=== PATIENT | female | born 1960 | race Caucasian/White ===

== ENCOUNTER 2020-02-08 07:21 | Outpatient (CLI) | payer OTHER, SELFPAY ==
--- NOTE | ~2020-02-08 | MM_ITS ---
EXAMINATION: MM screening [facility] BI w august HISTORY: Screening TECHNIQUE: Craniocaudal and mediolateral oblique 3-D tomosynthesis images were obtained and synthetic 2-D images were generated. CAD analysis was submitted and interpreted. COMPARISON: Comparison to multiple prior studies sequentially, with oldest reviewed study dated 04/30. BREAST PARENCHYMAL COMPOSITION: There are scattered areas of fibroglandular density. FINDINGS: There is focal asymmetry in the subareolar location of the left breast on CC view. The righ t breast is stable without evidence for malignancy. IMPRESSION: 1. Focal left breast asymmetry on CC view. 2. Additional mammographic views and possible breast ultrasound are recommended. BI-RADS Category 0: Incomplete: Needs additional imaging evaluation. Reviewed, dictated and finalized at location A. IMPRESSION: 1. Focal left breast asymmetry on CC view. 2. Additional mammographic views and possible breast ultrasound are recommended . BI-RADS Category 0: Incomplete: Needs additional imaging evaluation.
== END 2020-02-08 07:22 | disposition home or self-care (01) ==
PROVIDERS: PCP Family Medicine; Visit Provider Obstetrics & Gynecology
DX: Z12.31 Encounter for screening mammogram for malignant neoplasm of breast (principal); R92.8 Other abnormal and inconclusive findings on diagnostic imaging of breast
CPT/HCPCS: 77063; 77067

== ENCOUNTER → 2020-02-25 14:10 | Outpatient (CLI) | payer OTHER, SELFPAY ==
--- NOTE | ~2020-02-25 | MMUS_ITS ---
EXAMINATION: MM diagnostic mammo unilat LT, US breast LT limited HISTORY: Left breast asymmetry on screening mammogram TECHNIQUE: Additional 3-D tomosynthesis images of the left breast were performed and synthetic 2-D im ages were generated. CAD analysis was submitted and interpreted. High resolution limited left breast ultrasound was performed. COMPARISON: 02/08/2020, 12/18/2018, 12/15/2017, 06/08/2014, 05/29/2013 FINDINGS: MAMMOGRAPHIC FINDINGS: An asymmetry persists in the middle third of the slightly outer breast 3.8 cm from the nipple on the craniocaudal view which has an appearance similar to prior mammograms with spot compression. No assoc iated architectural distortion or calcification are identified. ULTRASOUND: There is no evidence of focal abnormal solid or cystic lesion in the vicinity of the mammographic fin ding in question. IMPRESSION: 1. No mammographic or sonographic evidence of malignancy. 2. Recommend routine screening mammography in one year. BI-RADS Category 2: Benign finding(s). Reviewed, dictated and finalized at location A. IMPRESSION: 1. No mammographic or sonographic evidence of malignancy. 2. Recommend routine screening mammography in one year. BI-RADS Category 2: Benign finding(s).
== END ==
PROVIDERS: Visit Provider Obstetrics & Gynecology
DX: R92.8 Other abnormal and inconclusive findings on diagnostic imaging of breast (principal)
CPT/HCPCS: 76642; 77065

== ENCOUNTER 2020-09-06 08:37 | Emergency (ER) | payer OTHER, SELFPAY ==
--- NOTE | 2020-09-06 08:41 | ED.GENADULT ---
HPI - General Adult General Chief complaint: Urogenital-Female Stated complaint: UTI SYMPTOMS Time Seen by Provider: 09/06/20 08:41 Source: patient Mode of arrival: ambulatory Limitations: no limitations History of Present Illness HPI narrative: 60-year-old female patient presents to the [facility] with complaints of urinary symptoms that started this morning. Patient states she has had a little bit of lower abdominal pressure, urinary frequency and urgency and a little bit of burning pain when she urinates. Denies any low back pain. Denies any fevers, body aches or chills. Patient denies taking anything for her symptoms. Related Data Allergies Allergy/AdvReac Type Severity Reaction Status Date / Time No Known Allergies Allergy Unknown Verified 09/06/20 08:43 Review of Systems Review of Systems: Narrative: CONSTITUTIONAL: Denies fever, chills, or sweats. EYES: Denies visual changes, redness, or discharge. ENT: Denies rhinorrhea, congestion, sore throat, or otalgia. CARDIOVASCULAR: Denies chest pain, palpitations, or edema. RESPIRATORY: Denies cough or dyspnea. GASTROINTESTINAL: Denies abdominal pain, nausea, vomiting, or diarrhea. GENITOURINARY: Positive dysuria, denies hematuria. SKIN: Denies rash or itching. MUSCULOSKELETAL: Denies back pain, joint pain, or myalgia. NEUROLOGIC: Denies headache, numbness, or weakness. PSYCHIATRIC: Denies anxiety or depression. [facility] Past Medical History Medical History (Updated 09/06/20 @ 09:06 by MARSHA Everett) Benign neoplasm of colon Essential hypertension History of postmenopausal HRT Metabolic syndrome Mixed hyperlipidemia Type 2 diabetes mellitus with hyperglycemia Vitamin D deficiency Surgical History Surgical History (Updated 09/06/20 @ 08:42 by MARSHA Everett) H/O tubal ligation H/O: hysterectomy Hx of cholecystectomy Family History Family History Mother Diabetes mellitus Family history of type 1 diabetes mellitus, Onset Age: 48 Grandparent Family history of cardiovascular disease Social History Social History Smoking status: Never smoker Second hand tobacco smoke exposure: No Alcohol intake: current Substance use: never Substance use type: does not use Gender identity (if verbalized by the patient): Female Comments At the time of my signature I agree with nursing past medical history, surgical, social, and family history. There is no relevant family history pertinent to the presenting complaint. Exam Narrative: Exam Narrative: GENERAL: Well-appearing, well-nourished, and in no acute distress. HEAD: Normocephalic, atraumatic. EYES: PERRLA and EOMI. ENT: Nares clear, no rhinorrhea or epistaxis. Mucous membranes moist. NECK: Supple. No lymphadenopathy CHEST: Clear to auscultation. No respiratory distress. HEART: Regular rate and rhythm. No murmur heard. Normal peripheral pulses. ABDOMEN: Soft, nontender, nondistended, normal active bowel sounds. No CVA tenderness on percussion EXTREMITIES: Normal range of motion. No edema. SKIN: Warm, dry, no rash. NEURO: No focal deficits. Alert and oriented x3. Course Vital Signs Vital signs: Vital Signs Temperature 36.2 C L 09/06/20 08:50 Pulse Rate 92 09/06/20 08:50 Respiratory Rate 12 09/06/20 08:50 Blood Pressure 128/69 09/06/20 08:50 Pulse Oximetry 100 09/06/20 08:50 Temperature 36.2 C L 09/06/20 08:50 Pulse Rate 92 09/06/20 08:50 Respiratory Rate 12 09/06/20 08:50 Blood Pressure 128/69 09/06/20 08:50 Pulse Oximetry 100 09/06/20 08:50 Vital signs reviewed Medical Decision Making Differential Diagnosis Differential Diagnosis: Differential diagnosis: Uncomplicated lower UTI, uncomplicated UTI, pyelonephritis Discussed with patient that based on her symptoms as well as her urine dip it does appear that she most likely does
[2020-09-06 08:50] VITALS: BP 128/69; PULSE 92; RESP 12; TEMP 36.2; O2SAT 100
== END 2020-09-06 09:12 | disposition home or self-care (01) ==
PROVIDERS: Emergency Provider Nurse Practitioner Family; PCP Family Medicine
DX: N30.01 Acute cystitis with hematuria (principal); I10 Essential (primary) hypertension; E88.81 Metabolic syndrome and other insulin resistance; E78.2 Mixed hyperlipidemia
CPT/HCPCS: 81003; 87077; 87086; 87088; 87186; 99213; G0463

== ENCOUNTER 2021-02-01 10:00 | Emergency (ER) | payer OTHER, SELFPAY ==
[2021-02-01 10:12] VITALS: BP 148/71; PULSE 82; RESP 16; TEMP 36.1; O2SAT 99
--- NOTE | 2021-02-01 10:26 | ED.FEMALEGU ---
HPI - Female Genitourinary General Chief complaint: Urogenital-Female Stated complaint: POS UTI Time Seen by Provider: 02/01/21 10:17 Source: patient and RN notes reviewed Mode of arrival: ambulatory Limitations: no limitations History of Present Illness HPI Narrative: Patient presents today complaining of urinary frequency, lower abdominal pressure, voiding small amounts. Symptoms began this morning. She took a dose of Azo approximately 2-1/2 hours prior to exam, which did help with her some. Denies hematuria. MD elicited complaint: UTI Related Data Allergies Allergy/AdvReac Type Severity Reaction Status Date / Time No Known Allergies Allergy Unknown Verified 09/12/20 14:48 Review of Systems Review of Systems: CONSTITUTIONAL: Denies body aches, fever, chills, or sweats. EYES: Denies visual changes, redness, or discharge. ENT: Denies rhinorrhea, congestion, sore throat, or otalgia. CARDIOVASCULAR: Denies chest pain, palpitations, or edema. RESPIRATORY: Denies cough or dyspnea. GASTROINTESTINAL: Denies abdominal pain, nausea, vomiting, or diarrhea. GENITOURINARY: + Frequency, suprapubic pressure SKIN: Denies rash, itching, or wounds. MUSCULOSKELETAL: Denies back pain, joint pain, or myalgia. NEUROLOGIC: Denies headache, numbness, tingling, or weakness. PSYCH: Denies depression or anxiety. [facility] Past Medical History Medical History Benign neoplasm of colon Essential hypertension History of postmenopausal HRT Metabolic syndrome Mixed hyperlipidemia Type 2 diabetes mellitus with hyperglycemia Vitamin D deficiency Surgical History Surgical History H/O tubal ligation H/O: hysterectomy Hx of cholecystectomy Family History Family History Mother Diabetes mellitus Family history of type 1 diabetes mellitus, Onset Age: 48 Grandparent Family history of cardiovascular disease Social History Social History Smoking status: Never smoker Second hand tobacco smoke exposure: No Alcohol intake: current Substance use: never Substance use type: does not use Gender identity (if verbalized by the patient): Female Comments At time of signature, I have reviewed and agree with nursing past medical, surgical, social and family history unless otherwise noted. Please see nursing chart for further information. There is no relevant family history pertinent to the presenting complaint Exam Narrative: GENERAL: Well-appearing, well-nourished, and in no acute distress. HEAD: Normocephalic, atraumatic. EYES: EOMI. No redness or drainage. Conjunctivae normal. ENT: Mucous membranes pink and moist. NECK: Normal AROM. CHEST: No respiratory distress. Clear to auscultation. HEART: Regular rate and rhythm. No murmur appreciated. Normal peripheral pulses. ABDOMEN: Soft, nontender, nondistended, normal active bowel sounds.-CVAT MUSCULOSKELETAL: No bony tenderness. EXTREMITIES: Normal range of motion. No edema. SKIN: Warm, dry, no rash. Capillary refill normal. Normal skin turgor. NEURO: No focal deficits. Alert and oriented x3. Gait steady. PSYCH: Normal affect. No signs of depression or anxiety. Course Vital Signs Vital signs: Vital Signs Temperature 96.9 F L 02/01/21 10:12 Pulse Rate 82 02/01/21 10:12 Respiratory Rate 16 02/01/21 10:12 Blood Pressure 148/71 H 02/01/21 10:12 Pulse Oximetry 99 02/01/21 10:12 Temperature 96.9 F L 02/01/21 10:12 Pulse Rate 82 02/01/21 10:12 Respiratory Rate 16 02/01/21 10:12 Blood Pressure 148/71 H 02/01/21 10:12 Pulse Oximetry 99 02/01/21 10:12 Reviewed. Pt has been instructed to follow up with her PCP regarding her elevated blood pressure today. MDM - Female Genitourinary Differential Diagno
== END 2021-02-01 10:36 | disposition home or self-care (01) ==
PROVIDERS: Emergency Provider Nurse Practitioner; PCP Family Medicine
DX: N30.00 Acute cystitis without hematuria (principal); I10 Essential (primary) hypertension; E78.5 Hyperlipidemia, unspecified; E11.9 Type 2 diabetes mellitus without complications; E88.81 Metabolic syndrome and other insulin resistance
CPT/HCPCS: 81003; 87086; 87088; 99213; G0463

== ENCOUNTER 2021-02-12 07:20 | Outpatient (CLI) | payer OTHER, SELFPAY ==
--- NOTE | ~2021-02-12 | MM_ITS ---
EXAMINATION: MM screening [facility] BI w august HISTORY: Screening TECHNIQUE: Craniocaudal and mediolateral oblique 3-D tomosynthesis images were obtained and synthetic 2-D images were generated. CAD analysis was submitted and interpreted. COMPARISON: Comparison to multiple prior studies sequentially, with oldest reviewed study dated 06/08. BREAST PARENCHYMAL COMPOSITION: There are scattered areas of fibroglandular density. FINDINGS: There is no evidence of suspicious mass, calcification, or architectural distortion to sugg est malignancy in either breast. There has been no suspicious interval change. IMPRESSION: 1. No mammographic evidence of malignancy. 2. Recommend routine screening mammography in one year. BI-RADS Category 1: Negative Reviewed, dictated and finalized at location A.
== END 2021-02-12 07:21 | disposition home or self-care (01) ==
LOC: ANHIMG 07:23
PROVIDERS: PCP Family Medicine; Visit Provider Obstetrics & Gynecology
DX: Z12.31 Encounter for screening mammogram for malignant neoplasm of breast (principal)
CPT/HCPCS: 77063; 77067

== ENCOUNTER 2022-02-22 00:41 | Day surgery (SDC) | payer OTHER, SELFPAY ==
[2022-02-03 14:33] VITALS: BMI 27.4
--- NOTE | 2022-02-19 15:24 | PM.HPGS ---
History of Present Illness History of Present Illness Consent: Risks, benefits, and alternatives have been discussed and questions answered. Patient agrees to proceed with procedure. Chief complaint: hx of colon polyps, neoplasm screening Narrative: Katia Pak is a 61 year old female here for colon cancer screening. She had a polyp removed about 4 years ago. Review of Systems Review of Systems: All systems reviewed & are unremarkable except as noted in HPI and below PMFSH Past Medical History Medical History Benign neoplasm of colon Controlled diabetes mellitus Essential hypertension History of postmenopausal HRT Metabolic syndrome Mixed hyperlipidemia Type 2 diabetes mellitus with hyperglycemia Vitamin D deficiency Surgical History Surgical History H/O tubal ligation H/O: hysterectomy Hx of cholecystectomy Family History Family History Mother Diabetes mellitus Family history of type 1 diabetes mellitus, Onset Age: 48 Grandparent Family history of cardiovascular disease Social History Social History Smoking status: Never smoker Second hand tobacco smoke exposure: No Alcohol intake: current Substance use: never Substance use type: does not use Living arrangements: other Additional living arrangements comments: with sp Gender identity (if verbalized by the patient): Female Meds Home Medications and Allergies Home Medications Medication Instructions Recorded Confirmed Type blood sugar diagnostic (OneTouch #100 ea 12/11/20 02/22/22 Rx Ultra Test strips) lisinopril 5 mg tablet 5 mg PO DAILY #90 tabs 06/15/21 02/22/22 Rx simvastatin 20 mg tablet 20 mg PO DAILY #90 tabs 06/15/21 02/22/22 Rx semaglutide 0.25 mg or 0.5 mg (2 0.5 mg (0.4 mL) subcut WEEKLY #1.5 01/04/22 02/22/22 Rx mg/1.5 mL) subcutaneous pen mL injector (Ozempic) Allergies Allergy/AdvReac Type Severity Reaction Status Date / Time No Known Allergies Allergy Unknown Verified 02/22/22 06:23 Exam Resp: Auscultation: clear to auscultation bilaterally Cardio: Rate: regular rate Rhythm: regular rhythm GI: GI Palp: Yes Soft to palpation and No Tenderness to palpation present (GI) Assessment and Plan Assessment and plan (1) Colon cancer screening: Code(s): Z12.11 - Encounter for screening for malignant neoplasm of colon Status: Acute
[2022-02-22 06:26] VITALS: BP 129/62; PULSE 78; RESP 16; TEMP 36.5; O2SAT 99
[2022-02-22] MEDS: LACTATED RINGERS 1,000 ML 150 ML IV CONT (06:38)
[2022-02-22 06:46] LABS: Glucose Point of Care 96 mg/dl (65-105)
--- NOTE | 2022-02-22 06:52 | WPDANESEPPF ---
Anes - Initial Pre Proc Eval Procedure: Operation Date: 02/22/22 07:30 Proposed Procedures p Screening Colonoscopy - Jose Garland MD Date/Time: 02/22/22 06:52 Surgeon: Jose Garland MD Pre Op Diagnosis: hx of colon polyps, neoplasm screening Patient Data Age: 61 Gender: F Height: 1.73 m Weight: 80.4 kg Last Vital Signs Temp 36.5 C 02/22/22 06:26 Pulse 78 02/22/22 06:26 Resp 16 02/22/22 06:26 BP 129/62 02/22/22 06:26 Pulse Ox 99 02/22/22 06:26 O2 Del Method Room Air 02/22/22 06:26 Allergies Allergy/AdvReac Type Severity Reaction Status Date / Time No Known Allergies Allergy Unknown Verified 02/22/22 06:23 Home Medications Medication Instructions Recorded Confirmed Type blood sugar diagnostic (OneTouch #100 ea 12/11/20 02/22/22 Rx Ultra Test strips) lisinopril 5 mg tablet 5 mg PO DAILY #90 tabs 06/15/21 02/22/22 Rx simvastatin 20 mg tablet 20 mg PO DAILY #90 tabs 06/15/21 02/22/22 Rx semaglutide 0.25 mg or 0.5 mg (2 0.5 mg (0.4 mL) subcut WEEKLY #1.5 01/04/22 02/22/22 Rx mg/1.5 mL) subcutaneous pen mL injector (Ozempic) Laboratory Tests 02/22/22 06:44 POC Capillary Glucose 96 mg/dl mg/dl (65-105) Patient hx anesthesia problems: none Family hx anesthesia problems: none Results Review: All pre-operative results and documents have been reviewed as part of the pre-operative evaluation. [facility] Past Medical History Medical History Benign neoplasm of colon Controlled diabetes mellitus Essential hypertension History of postmenopausal HRT Metabolic syndrome Mixed hyperlipidemia Type 2 diabetes mellitus with hyperglycemia Vitamin D deficiency Surgical History Surgical History H/O tubal ligation H/O: hysterectomy Hx of cholecystectomy Family History Family History Mother Diabetes mellitus Family history of type 1 diabetes mellitus, Onset Age: 48 Grandparent Family history of cardiovascular disease Social History Social History Smoking status: Never smoker Second hand tobacco smoke exposure: No Alcohol intake: current Substance use: never Substance use type: does not use Living arrangements: other Additional living arrangements comments: with sp Gender identity (if verbalized by the patient): Female Anes - Eval Final PreProcedure Day of Procedure 02/22/22 06:52 Patient weight: overweight Heart: regular rate and rhythm Lungs: clear to auscultation Airway: Mallampati scale class II Neurological: alert and oriented Last oral intake: >/= 8 hours ASA classification: II Emergent: no Anesthetic plan: proceed Anesthesia type and monitoring: general GIVS and standard monitoring Results Review: All pre-operative results and documents have been reviewed as part of the pre-operative evaluation. Informed Consent: The patient's anesthetic plan and its attendant risks and benefits were discussed with the patient/family/POA. Questions were solicited and answers provided to the satisfaction of the patient/family/POA.
[2022-02-22 07:47] VITALS: BP 89/44; PULSE 72; RESP 25; O2SAT 97
[2022-02-22 07:57] VITALS: BP 110/63; PULSE 74; RESP 22; O2SAT 99
[2022-02-22 08:07] VITALS: BP 119/72; PULSE 72; RESP 20; O2SAT 100
== END 2022-02-22 08:18 | disposition home or self-care (01) ==
PROVIDERS: PCP Family Medicine; Visit Provider Internal Medicine Gastroenterology
PROC: 0DJD8ZZ Inspection of Lower Intestinal Tract, Via Natural or Artificial Opening Endoscopic (ICD-10-PCS; CPT 45378; principal; 2022-02-22 07:30)
DX: Z12.11 Encounter for screening for malignant neoplasm of colon (principal); Z86.010 Personal history of colon polyps; E55.9 Vitamin D deficiency, unspecified; E11.9 Type 2 diabetes mellitus without complications; E78.2 Mixed hyperlipidemia; E11.65 Type 2 diabetes mellitus with hyperglycemia; Z90.49 Acquired absence of other specified parts of digestive tract
CPT/HCPCS: 45378; 82948; J2704; J7120

== ENCOUNTER 2022-02-23 07:25 | Outpatient (CLI) | payer OTHER, SELFPAY ==
--- NOTE | ~2022-02-23 | MM_ITS ---
EXAMINATION: MM screening [facility] BI w august HISTORY: Screening mammogram TECHNIQUE: Craniocaudal and mediolateral oblique 3-D tomosynthesis images were obtained and synthetic 2-D images were generated. CAD analysis was submitted and interpreted. COMPARISON: Serial mammogram and ultrasound examinations dating back to 12/15/2017 BREAST PARENCHYMAL COMPOSITION: There are scattered areas of fibroglandular density. FINDINGS: There is no evidence of suspicious mass, calcification, or architectural distortion to sugg est malignancy in either breast. There has been no suspicious interval change. IMPRESSION: 1. No mammographic evidence of malignancy. 2. Recommend routine screening mammography in one year. BI-RADS Category 1: Negative Reviewed, dictated and finalized at location A.
== END 2022-02-23 07:26 | disposition home or self-care (01) ==
LOC: ANHIMG 07:26
PROVIDERS: PCP Family Medicine; Visit Provider Obstetrics & Gynecology
DX: Z12.31 Encounter for screening mammogram for malignant neoplasm of breast (principal)
CPT/HCPCS: 77063; 77067

== ENCOUNTER 2022-04-13 17:50 | Emergency (ER) | payer OTHER, SELFPAY ==
[2022-04-13 17:55] VITALS: BP 126/76; PULSE 91; RESP 16; TEMP 36.7; O2SAT 98
--- NOTE | 2022-04-13 17:58 | ED.FEMALEGU ---
HPI - Female Genitourinary General Chief complaint: Urogenital-Female Stated complaint: PAINFUL URINATION Time Seen by Provider: 04/13/22 17:58 Source: patient and RN notes reviewed History of Present Illness HPI Narrative: Patient is a 61-year-old female who presents to urgent care with complaints of possibly UTI due to urgency, frequency and suprapubic pressure. Patient states that it started a couple days ago and she has been taking Tylenol. Denies any fevers, nausea or vomiting. Patient states that she has had a few UTIs in the last couple years. Denies any history of kidney stones. No other acute complaints. No acute distress noted. Patient aware of the plan of care. Some parts of this dictation were generated by voice recognition software and may contain typographical and/or grammatical inaccuracies. Related Data Allergies Allergy/AdvReac Type Severity Reaction Status Date / Time No Known Allergies Allergy Unknown Verified 02/22/22 06:23 Review of Systems Review of Systems: CONSTITUTIONAL: Denies fever, chills, or sweats. EYES: Denies visual changes, redness, or discharge. ENT: Denies rhinorrhea, congestion, sore throat, or otalgia. CARDIOVASCULAR: Denies chest pain, palpitations, or edema. RESPIRATORY: Denies cough or dyspnea. GASTROINTESTINAL: Denies abdominal pain, nausea, vomiting, or diarrhea. GENITOURINARY: Reports of urgency, frequency and suprapubic pressure SKIN: Denies rash or itching. MUSCULOSKELETAL: Denies back pain, joint pain, or myalgia. NEUROLOGIC: Denies headache, numbness, or weakness. All other systems reviewed are negative, except as documented in HPI. [facility] Past Medical History Medical History Benign neoplasm of colon Controlled diabetes mellitus Essential hypertension History of postmenopausal HRT Metabolic syndrome Mixed hyperlipidemia Type 2 diabetes mellitus with hyperglycemia Vitamin D deficiency Surgical History Surgical History H/O tubal ligation H/O: hysterectomy Hx of cholecystectomy Family History Family History Mother Diabetes mellitus Family history of type 1 diabetes mellitus, Onset Age: 48 Grandparent Family history of cardiovascular disease Social History Social History Smoking status: Never smoker Second hand tobacco smoke exposure: No Alcohol intake: current Substance use: never Substance use type: does not use Additional living arrangements comments: with sp Gender identity (if verbalized by the patient): Female Comments At the time of my signature, I reviewed and agree with the nursing past medical, surgical, social, and family history. There is no relevant family history pertinent to the patient complaint. Exam Narrative: GENERAL: This is a well-nourished, well-developed patient, in no apparent distress. HEAD: normocephalic, atraumatic. EYES: PERRL. Sclera clear/white. Vision is grossly intact. EARS: External ears normal NOSE: External nose normal with no obvious nasal discharge, nares without redness, no rhinorrhea. THROAT: Mucous membranes moist NECK: Neck supple CARDIOVASCULAR: Regular rate and rhythm without murmurs, gallops, or rubs. RESPIRATORY: Clear to auscultation. Breath sounds equal bilaterally. No wheezes, rales, or rhonchi. GASTROINTESTINAL: Abdomen soft, mild suprapubic tenderness, nondistended. Bowel sounds are active. SKIN: warm, intact with no suspicious lesions or rash, good texture and turgor. NEURO: awake, alert, and oriented to person, place and time. There were no obvious focal neurologic abnormalities. EXTREMITIES: No clubbing, cyanosis, or edema. BACK: Negative CVA tenderness Course Course Level of Care: Express Care Visit Vital Signs Vital signs: Vital Signs Temperature 98.1 F
== END 2022-04-13 18:19 | disposition home or self-care (01) ==
PROVIDERS: Emergency Provider Nurse Practitioner Family; PCP Family Medicine
DX: N30.90 Cystitis, unspecified without hematuria (principal); E11.9 Type 2 diabetes mellitus without complications; I10 Essential (primary) hypertension; E78.2 Mixed hyperlipidemia
CPT/HCPCS: 81003; 87086; 99213; G0463

== ENCOUNTER 2023-03-08 07:24 | Outpatient (CLI) | payer OTHER, SELFPAY ==
--- NOTE | ~2023-03-08 | MM_ITS ---
EXAMINATION: MM screening [facility] BI w august HISTORY: Screening mammogram TECHNIQUE: Craniocaudal and mediolateral oblique 3-D tomosynthesis images were obtained and synthetic 2-D images were generated. CAD analysis was submitted and interpreted. COMPARISON: 02/23/2022, 02/12/2021 bilateral screening mammogram examinations 02/25/2020 diagnostic left mammogram and limited left breast ultrasound examination 02/08/2020 bilateral screening mammogram BREAST PARENCHYMAL COMPOSITION: There are scattered areas of fibroglandular density. FINDINGS: Stable mild fibroglandular asymmetry. Occasional scattered benign calcifications. There is no evidence of suspicious mass, calcification, or architectural distortion to suggest malignancy in e ither breast. There has been no suspicious interval change. IMPRESSION: 1. No mammographic evidence of malignancy. 2. Recommend routine screening mammography in one year. BI-RADS Category 2: Benign finding(s)..... Reviewed, dictated and finalized at location A.
== END 2023-03-08 07:25 | disposition home or self-care (01) ==
LOC: ANHIMG 07:25
PROVIDERS: PCP Family Medicine; Visit Provider Obstetrics & Gynecology
DX: Z12.31 Encounter for screening mammogram for malignant neoplasm of breast (principal)
CPT/HCPCS: 77063; 77067

== ENCOUNTER 2023-05-26 08:17 | Emergency (ER) | payer OTHER, SELFPAY ==
--- NOTE | 2023-05-26 08:23 | ED.WOUNDLAC ---
HPI - Wound/Laceration General Chief Complaint: Wound/Laceration Stated Complaint: Cut Finger Time Seen by Provider: 05/26/23 08:23 Source: patient Mode of arrival: ambulatory Limitations: no limitations History of Present Illness HPI narrative: Winter is in a 62-year-old female patient presenting to the clinic today with complaints of a cut on her left index finger yesterday on a knife. She reports she was trying to work with packing tape in accidentally cut herself. She reports that it was still oozing this morning and that prompted her to come into the clinic today. Tetanus shot is [id number] Related Data Allergies Allergy/AdvReac Type Severity Reaction Status Date / Time nitrofurantoin AdvReac Unknown Fatigued, Verified 05/26/23 08:24 [From Macrobid] Chills Review of Systems Review of Systems: Pertinent positives per HPI. Patient denies any fever, chills, rash, headache, visual changes, dizziness, cough, runny nose, sore throat, shortness of breath, chest pain, palpitations, nausea, vomiting, diarrhea, constipation, abdominal pain, or any urinary issues. FORMERLY [facility] Past Medical History Medical History Benign neoplasm of colon Controlled diabetes mellitus Essential hypertension History of postmenopausal HRT Metabolic syndrome Mixed hyperlipidemia Type 2 diabetes mellitus with hyperglycemia Vitamin D deficiency Surgical History Surgical History H/O tubal ligation H/O: hysterectomy Hx of cholecystectomy Family History Family History Mother Diabetes mellitus Family history of type 1 diabetes mellitus, Onset Age: 48 Grandparent Family history of cardiovascular disease Social History Social History Smoking status: Never smoker Second hand tobacco smoke exposure: No Alcohol intake: current Substance use: never Substance use type: does not use Living arrangements: other Additional living arrangements comments: with sp Occupation/Education: occupation Gender identity (if verbalized by the patient): Female Comments At the time of my signature, I reviewed and agree with the nursing past medical, surgical, social, and family history. There is no relevant family history pertinent to the patient complaint. Exam Narrative: General: Well-developed, well nourished, in no apparent distress Head: Normocephalic, atraumatic. Cardio: Regular rate and rhythm, s1 and s2 normal, no murmur appreciated. Resp: Clear to auscultation bilaterally, no rhonchi, rales, wheezing or rubs. Integumentary: Lavina, warm, and dry, intact without lesion, 1 cm laceration to the lateral PIP joint of the left index finger-very mild gaping noted Course Course Emergency Course: Portions of this record may have been created with voice recognition software. Level of Care: Express Care Visit Vital Signs Vital signs: Vital Signs Temperature 37.0 C 05/26/23 08:30 Pulse Rate 83 05/26/23 08:30 Respiratory Rate 16 05/26/23 08:30 Blood Pressure 123/83 05/26/23 08:30 Pulse Oximetry 100 05/26/23 08:30 Temperature 37.0 C 05/26/23 08:30 Pulse Rate 83 05/26/23 08:30 Respiratory Rate 16 05/26/23 08:30 Blood Pressure 123/83 05/26/23 08:30 Pulse Oximetry 100 05/26/23 08:30 Vital signs reviewed Procedures Laceration Laceration 1: Date: 05/26/23 Site: hand (Left index finger) Side (If applicable): left Size (cm): 1 Description: linear Depth: simple, single layer Local Anesthetic: none Pre-repair: wound explored and irrigated ====== Skin Level ====== Skin layer closed with: steri strips ====== Subcutaneous Layer ====== ====== Muscle Layer ====== =====
[2023-05-26 08:30] VITALS: BP 123/83; PULSE 83; RESP 16; TEMP 37; O2SAT 100
== END 2023-05-26 08:57 | disposition home or self-care (01) ==
PROVIDERS: Emergency Provider Nurse Practitioner Family; PCP Family Medicine
DX: S61.211A Laceration without foreign body of left index finger without damage to nail, initial encounter (principal); E11.9 Type 2 diabetes mellitus without complications; I10 Essential (primary) hypertension; E78.2 Mixed hyperlipidemia; W26.0XXA Contact with knife, initial encounter
CPT/HCPCS: 12001; 99213; G0463

== ENCOUNTER 2024-01-15 18:20 | Emergency (ER) | payer OTHER, SELFPAY ==
[2024-01-15 18:28] VITALS: BP 117/77; PULSE 89; RESP 16; TEMP 36.5; O2SAT 100
--- NOTE | 2024-01-15 18:34 | ED.SKABFB ---
HPI - Skin/Abscess/Foreign Bdy General Chief complaint: Skin/Abscess/Foreign Body Stated complaint: Bug Bite Time Seen by Provider: 01/15/24 18:34 Source: patient, RN notes reviewed and old records reviewed Mode of arrival: ambulatory Limitations: no limitations History of Present Illness HPI narrative: 63 year old female who presents to express care with complaints of being bit by some form of insect on her right upper arm which she noticed yesterday morning. Patient reports that she has taken Benadryl for the redness swelling and itching to her right upper inner arm. Patient has 2 sites noted with right inner arm site. with surrounding redness swelling and some warmth to areas around bites MD complaint: insect bite/sting and other (cellulitis) Onset (ago): day(s) (noted yesterday morning) Location: RUE Quality: pruritic and other (warmth to skin tissue) Treatments prior to arrival: Benadryl Related Data Allergies Allergy/AdvReac Type Severity Reaction Status Date / Time nitrofurantoin AdvReac Unknown Fatigued, Verified 01/15/24 18:35 [From Macrobid] Chills Review of Systems Review of Systems: CONSTITUTIONAL: Denies fever, chills, or sweats. CARDIOVASCULAR: Denies chest pain, palpitations, or edema. RESPIRATORY: Denies cough or dyspnea. GASTROINTESTINAL: Denies abdominal pain, nausea, vomiting SKIN: Reports redness and swelling. to around 2 insect bites to right upper arm, Denies purulent drainage, vesicles, warmth to tissue around bug bites, states no known fevers states is itchy MUSCULOSKELETAL: Denies myalgia. NEUROLOGIC: Denies headache, numbness All systems reviewed & are unremarkable except as noted in HPI and below PMFSH Past Medical History Medical History Benign neoplasm of colon Controlled diabetes mellitus Essential hypertension History of postmenopausal HRT Metabolic syndrome Mixed hyperlipidemia Type 2 diabetes mellitus with hyperglycemia Vitamin D deficiency Surgical History Surgical History H/O tubal ligation H/O: hysterectomy Hx of cholecystectomy Family History Family History Mother Diabetes mellitus Family history of type 1 diabetes mellitus, Onset Age: 48 Grandparent Family history of cardiovascular disease Social History Social History Smoking status: Never smoker Second hand tobacco smoke exposure: No Alcohol intake: current Substance use: never Substance use type: does not use Living arrangements: other Additional living arrangements comments: with sp Occupation/Education: occupation Gender identity (if verbalized by the patient): Female Comments At time of signature, agree with nursing past medical, surgical, social and family history. There is no relevant family history pertinent to the presenting complaint Exam Narrative: GENERAL: Well-appearing, well-nourished, and in no acute distress. HEAD: Normocephalic, atraumatic. EYES: PERRLA and EOMI. ENT: Nares clear, no rhinorrhea or epistaxis. Mucous membranes moist. NECK: Supple.no lymphadenopathy CHEST: Clear to auscultation. No respiratory distress.SAO2 100% on room air HEART: Regular rate and rhythm. No murmur heard. Normal peripheral pulses. ABDOMEN: Soft, nontender, nondistended, normal active bowel sounds. EXTREMITIES: Normal range of motion. No edema. SKIN: Warm, dry. Erythema, induration, tenderness, 1cm center area which is darkened with surrounding redness and swelling distal bite with warmth margins of redness 10cmX 13 cm. upper bite with surrounding reness center darker red area 1cm with surround redness and warmth of 3.5cm X 4.5cm warmth with sharp margins noted, no vesicles or any drainage noted. NEURO: No focal deficits. Alert and oriented x3. Course Course
[2024-01-15] MEDS: methylPREDNISolone ACETATE 80 MG/ML VIAL IM (18:49)
== END 2024-01-15 18:59 | disposition home or self-care (01) ==
PROVIDERS: Emergency Provider Registered Nurse; PCP Family Medicine
DX: S40.861A Insect bite (nonvenomous) of right upper arm, initial encounter (principal); L03.113 Cellulitis of right upper limb; W57.XXXA Bitten or stung by nonvenomous insect and other nonvenomous arthropods, initial encounter; E11.9 Type 2 diabetes mellitus without complications; I10 Essential (primary) hypertension; E78.2 Mixed hyperlipidemia; E88.810 Metabolic syndrome; Z85.038 Personal history of other malignant neoplasm of large intestine
CPT/HCPCS: 96372; 99213; G0463; J1010

== ENCOUNTER 2024-03-12 07:20 | Outpatient (CLI) | payer OTHER, SELFPAY ==
--- NOTE | ~2024-03-12 | MM_ITS ---
EXAMINATION: MM screening [facility] BI w august HISTORY: Screening TECHNIQUE: Craniocaudal and mediolateral oblique 3-D tomosynthesis images were obtained and synthetic 2-D images were generated. CAD analysis was submitted and interpreted. COMPARISON: Comparison to multiple prior studies sequentially, with oldest reviewed study dated 12/18. BREAST PARENCHYMAL COMPOSITION: Not dense: There are scattered areas of fibroglandular density. FINDINGS: There is no evidence of suspicious mass, calcification, or architectural distortion to sugg est malignancy in either breast. There has been no suspicious interval change. IMPRESSION: 1. No mammographic evidence of malignancy. 2. Recommend routine screening mammography in one year. BI-RADS Category 1: Negative Reviewed, dictated and finalized at location B.
== END 2024-03-12 07:21 | disposition home or self-care (01) ==
LOC: ANHIMG 07:22
PROVIDERS: PCP Family Medicine; Visit Provider Obstetrics & Gynecology
DX: Z12.31 Encounter for screening mammogram for malignant neoplasm of breast (principal)
CPT/HCPCS: 77063; 77067

== ENCOUNTER 2025-04-23 07:20 | Outpatient (CLI) | payer OTHER, SELFPAY ==
--- NOTE | ~2025-04-23 | MM_ITS ---
EXAMINATION: MM screening [facility] BI w august HISTORY: Screening TECHNIQUE: Craniocaudal and mediolateral oblique 3-D tomosynthesis images were obtained and synthetic 2-D images were generated. CAD analysis was submitted and interpreted. COMPARISON: Comparison to multiple prior studies sequentially, with oldest reviewed study dated 02/08/2020. BREAST PARENCHYMAL COMPOSITION: Not dense: There are scattered areas of fibroglandular density. FINDINGS: There is no evidence of suspicious mass, calcification, or architectural distortion to suggest malignancy in either breast. There has been no suspicious interval change. IMPRESSION: 1. No mammographic evidence of malignancy. 2. Recommend routine screening mammography in one year. BI-RADS Category 1: Negative Reviewed, dictated and finalized at location [facility]. [facility]
--- OUTSIDE RECORDS SUMMARY | 2025-04-23 07:23 | XMS_ITS | Clinical Summary ---
Author Organization [facility] Address [address] [place] [address] Phone Care Team Providers Care Audit Control Clerk Name Role Phone Unavailable Primary Care Provider Unavailabl e Allergies No known active allergies Medications estradioL (ESTRACE) 0.01% (0.1 mg/g) vaginal cream INSERT 1/2 GRAM VAGINALLY 3 TIMES PER WEEK. 42.5 Gram 3 02/15/20 23 Active diclofenac sodium (VOLTAREN) 75 mg Tablet, Delayed Release (E.C.) Take 1 Tablet (75 mg) by mouth 2 times daily. 60 Tablet 06/25/2023 9:10 AM ACCOUNTS PAYABLE CLERK 06/21/19 24 Active amoxicillin (AMOXIL) 875 mg tablet Take 1 tablet by mouth twice daily until all tabs are taken 28 Tablet 10/18/2023 7:42 PM CDT 10/18/19 24 Active clindamycin HCL (CLEOCIN) 300 mg Capsule Take 1 capsule by mouth every 8 hours with food for 10 days 30 Capsule 01/16/2024 11:44 AM CDT 01/15/20 24 Active fluconazole (DIFLUCAN) 150 mg tablet Take 1 tablet by mouth at the onset of symptoms, and may repeat in 72 hours 2 Tablet 01/16/2024 11:44 AM CDT 01/15/20 24 Active triamcinolone acetonide (KENALOG) 0.1 % Ointment Apply to area of rash twice daily (never apply this ointment to the face) 80 Gram 01/16/2024 11:44 AM CDT 01/15/20 24 Active hydrOXYzine HCL (ATARAX) 10 mg tablet Take one tablet (10 mg) orally three times a day As Needed for itching 20 Tablet 01/18/2024 9:26 AM CDT 01/18/20 24 Active predniSONE (DELTASONE) 10 mg tablet Take 4 tablets by mouth daily for 3 days, then take 3 tablets daily for 3 days, then take 2 tablets daily for 3 days, then take 1 tablet daily for 3 days 30 Tablet 01/18/2024 9:26 AM T 01/18/20 24 Active hydrOXYzine HCL (ATARAX) 25 mg tablet Take 1 Tablet (25 mg) by mouth 3 times daily as needed. 30 Tablet 01/20/2024 4:49 PM T 01/20/20 24 Active estradioL (Estrace) 0.01% (0.1 mg/g) vaginal cream Insert 1/2 gram into vagina three times weekly as directed 42.5 Gram 2 02/21/2024 6:35 PM T 02/21/20 24 Active clotrimazole-b etamethasone (LOTRISONE) 1-0.05 % Cream Apply a small amount to skin three times a day 45 Gram 3 11/29/2024 5:31 PM T 02/21/20 24 Active terconazole (TERAZOL) 0.4% vaginal cream Insert 1 applicatorful into vagina every night at bedtime 45 Gram 02/21/2024 6:35 PM T 02/21/20 24 Active sulfamethoxazo le-trimethopri m (BACTRIM DS) 800-160 mg tablet Take 1 tablet by mouth every 12 hours for 3 days 6 Tablet 04/09/2024 4:22 PM ACCOUNTS PAYABLE CLERK 04/07/20 24 Active lisinopriL (PRINIVIL) 5 mg tablet Take 1 Tablet (5 mg) by mouth daily. 90 Tablet 2 04/13/2025 4:37 PM ACCOUNTS PAYABLE CLERK 07/12/19 25 Active rosuvastatin (CRESTOR) 10 mg tablet Take 1 tablet by mouth daily 90 Tablet 3 04/13/2025 4:37 PM ACCOUNTS PAYABLE CLERK 10/17/19 25 Active ergocalciferol (VITAMIN D2) 50,000 unit capsule Take 1 Capsule (50,000 Units) by mouth every 7 days. 12 Capsule 2 04/13/2025 4:37 PM ACCOUNTS PAYABLE CLERK 02/15/20 25 Active semaglutide (Ozempic) 2 mg/dose (8 mg/3 mL) Pen Injector Inject 2 mg by subcutaneous injection every 7 days. 3 mL 3 04/19/20 25 Active semaglutide (Ozempic) 1 mg/dose (4 mg/3 mL) Pen Injector Inject 1 mg by subcutaneous injection every 7 days. 3 mL 3 04/13/2025 4:37 PM ACCOUNTS PAYABLE CLERK 01/18/20 25 025 Discontin ued(Other ) Encounters Date Type Department Care Team Description 04/16/2025 External Device Data [facility] Provider, Abstract 03/26/2025 External Device Data [facility] Provider, Abstract from Last 3 Months Family History Medical History Relation Name Comments Breast Cancer Neg Hx Ovarian Cancer Neg Hx Social History Tobacco Use Types Packs/Day Years Used Date Smoking Tobacco: Never Assessed Comments Unknown Sex and Gender Information Value Date Recorded Sex Assigned at Not on file Legal Sex Female 9:32 AM CDT Gender Identity Not on file Sexual Orientation Not on file Plan of Treatment Health Maintenance Due Date Last Done Comments DTAP/TDAP/TD VACCINES (1 - Tdap) 1980 HPV/Cotest (21-29) 1982 CERVICAL CANCER SCREENING 1991 HPV/Cotest (30-65) 1991 PAP SMEAR 1991 COLORECTAL SCREENING 2006 Colorectal Cancer Screening 2006 FIT-DNA Q 3 years 2006 FIT/FOBT Q 1 year 2006 Flex Sig/CT Colonography Q 5 years 2006 ZOSTER VACCINE (1 of 2) 2011 BREAST CANCER SCREENING 11/03/2016 11/04/2015 INFLUENZA VACCINE (#1) 2024 RSV VACCINE (60+ or ) (1 - 1-dose 75+ series) 2036 Procedures Procedure Name Priority Date/Time Associated Diagnosis Comments MAMMO SCREEN BILAT W OR WO CAD Routine 11/04/2015 3:04 PM CDT Visit for screening mammogram from Last 3 Months or Most Recently Relevant to Health Maintenance Results * MAMMO DIGITAL SCREEN BILAT (11/04/2015 3:04 PM CDT) Anatomical Region Laterality Modality Breast Bilateral Mammography 11/04/2015 3:04 PM CDT Addenda Addendum by Cynthia Avery MD on 11/11/2015 11:43 AM CDT ADDENDUM: The previous outside mammograms dated 06/08/2014, 05/29/2013 and 05/25/2012 were made available for comparison. There are scattered fibroglandular tissues bilaterally. No significant mass, malignant calcification or architectural distortion is seen. CAD was used. IMPRESSION: No evidence of malignancy. RECOMMENDATIONS: Bilateral annual screening mammogram. BI-RADS Category 1. Negative. Impressions 11/05/2015 2:43 PM CDT IMPRESSION: Incomplete study. Need comparison with old films. OVERALL ASSESSMENT: BI-RADS category 0. Incomplete study. Need comparison with old films. Narrative 11/05/2015 2:43 PM CDT BILATERAL SCREENING DIGITAL MAMMOGRAMS WITH COMPUTER ASSISTED DIAGNOSIS DATE: 11/04/2015 3:04 PM HISTORY: Annual screening. COMPARISON: Not available TECHNIQUE: A bilateral screening mammogram was performed. CAD was used. BREAST COMPOSITION: Scattered. FINDINGS: The previous outside mammograms were requested for comparison. Once they are available, an addendum will be dictated. Procedure Note Cynthia Avery MD - 11/05/2015 BILATERAL SCREENING DIGITAL MAMMOGRAMS WITH COMPUTER ASSISTED DIAGNOSIS DATE: 11/04/2015 3:04 PM HISTORY: Annual screening. COMPARISON: Not available TECHNIQUE: A bilateral screening mammogram was performed. CAD was used. BREAST COMPOSITION: Scattered. FINDINGS: The previous outside mammograms were requested for comparison. Once they are available, an addendum will be dictated. IMPRESSION IMPRESSION: Incomplete study. Need comparison with old films. OVERALL ASSESSMENT: BI-RADS category 0. Incomplete study. Need comparison with old films. Anjel Husain MD MAMMO ORDERABLES Edit ed Result - Final from Last 3 Months or Most Recently Relevant to Health Maintenance Insurance [facility] [employer] PPO [id number] RX [employer] Commercial RX [facility]
== END 2025-04-23 07:21 | disposition home or self-care (01) ==
LOC: ANHFOHIMG 07:21
PROVIDERS: PCP Family Medicine; Visit Provider Obstetrics & Gynecology
DX: Z12.31 Encounter for screening mammogram for malignant neoplasm of breast (principal)
CPT/HCPCS: 77063; 77067